=== PATIENT | female | born 1985 | race Caucasian/White ===

== ENCOUNTER 2022-11-04 14:43 | Emergency (ER) | payer OTHER, SELFPAY ==
[2022-11-04 14:44] VITALS: BP 115/69; PULSE 86; RESP 18; TEMP 36.4; O2SAT 99; BMI 47.4
--- NOTE | 2022-11-04 15:51 | ED.VIS.LOWEX ---
HPI History of Present Illness Chief Complaint: Lower Extremity Injury Narrative Narrative: 37-year-old female 9 weeks presenting with left calf pain. She has a known DVT and known pulmonary emboli that she was diagnosed with that about 4 weeks . She states has been treated with heparin shots 10,000 units every 8 hours. She reports that she still has pain in the left calf and her primary care doctor ordered a DVT study. This was done prior to coming to the ER and she was sent to the ER after this was found. She does not have any chest pain or shortness of breath. No bruising, swelling to the left calf. She reports pain is in the lower half of the mid calf. No trauma. PFSH PFSH Medical History no medical history Allergy/AdvReac Type Severity Reaction Status Date / Time No Known Allergies Allergy Verified 11/04/22 14:46 Social History Smoking Status: Never smoker ROS ROS ED Constitutional Constitutional ED: Denies chills, fever(s) or sweats Eyes Eyes: Denies blurry vision or change in vision ENT ENT ED: Denies ear pain or sore throat Cardiovascular Cardiovascular: Denies chest pain, palpitations or racing heartbeat Respiratory/Chest Respiratory/Chest: Denies cough, dyspnea or sputum Gastrointestinal Gastrointestinal: Denies abdominal pain, constipation, diarrhea, nausea or vomiting Genitourinary Genitourinary ED: Denies dysuria, hematuria or urinary frequency Musculoskeletal Musculoskeletal: Reports other Details: Left calf pain ; Denies arthralgias, myalgias or neck pain Integumentary Denies abscess, Abrasions or rash Neurologic Neurologic: Denies headache(s), paresthesias or weakness Psychiatric Psychiatric: Denies anxiety, depression, suicidal ideation or suicidal thoughts Endocrine Endocrinology: Denies polydipsia or polyuria EXAM Physical Exam Const Vital Signs: 11/04/22 14:44 Temperature 97.6 F L Temperature Source Temporal Pulse Rate 86 Respiratory Rate 18 Blood Pressure 115/69 Blood Pressure Mean 84 Pulse Ox 99 Oxygen Delivery Method Room Air Positive well nourished General Appearance ED: NAD HEENT Reports moist mucous membranes normocephalic and atraumatic Resp normal respiratory effort and no retractions Auscultation: Negative for rales, rhonchi or wheezes Cardio regular rate and regular rhythm Extremity normal to inspection Extremity Narrative: Tenderness to palpation left mid calf. No cords palpated. No redness, bruising, edema. General Extremety ED: Negative for edema General Extremity: Negative for edema Neuro oriented x3 Sensorium / Orientation: alert Motor Exam: strength 5/5 throughout Psych mental status grossly normal Skin no wounds MDM MDM MDM Narrative Medical decision making narrative: Patient presenting with known DVT to the left calf. Its been hurting her so Kody Hamilton ordered an outpatient DVT study which was positive for DVT because she was just diagnosed with this 5 weeks ago. Its at the level of the gastrocnemius. Patient reports he has no chest pain or shortness of breath. She is anticoagulated on heparin shots every 8 hours. At this point I do not know that she needs to change her medications. I feel that the heparin must be working or she would be having chest pain and shortness of breath. Likely this is just recurrent pain from DVT versus a new strain in the area. I spoke with Kody Hamilton who recommended just outpatient follow-up and using moist heat to this area. He recommended elevating her leg as well as often as she could. The patient and Dr. Hamilton state they do not want to switch her heparin because she is breast-feeding. They they will discuss this further at the neck office visit. Impression: 1. Left gastrocnemius DVT 2. History of PE Discharge Plan Triage Chief Complaint: Lower Extremity Injury ED Provider: Scott Mcmahan Dx/Rx/DC Orders Instructions: ED Deep Vein Thrombosis (DVT) Primary Care Provider: Kody Hamilton Referrals: Kody Hamilton DO [Primary Care Provider] - Disposition Disposition: Home, Self Care
== END 2022-11-04 15:58 | disposition home or self-care (01) ==
PROVIDERS: Emergency Provider Student in an Organized Health Care Education/Training Program; PCP Family Medicine; Visit Provider Student in an Organized Health Care Education/Training Program
DX: I82.462 Acute embolism and thrombosis of left calf muscular vein (principal); Z86.711 Personal history of pulmonary embolism
CPT/HCPCS: 99282

== ENCOUNTER → 2022-11-04 | Outpatient (CLI) | payer SELFPAY, OTHER ==
--- NOTE | 2022-11-04 13:43 | VDLE_ITS ---
Reason For Study: History of left leg DVT RIGHT LEFT CFV is compressible, spontaneous, phasic, GSV is normal. competent and demonstrates normal CFV is compressible, spontaneous, phasic, augmentation. competent, and demonstrates normal Procedure augmentation. This is a venous duplex using B-mode, color FV is compressible, spontaneous, phasic, flow and spectral Doppler. competent and demonstrates normal Exam performed in department. augmentation. The exam was diagnostic. POP V is compressible, spontaneous and A preliminary report was called and/or faxed phasic. to Dr. Hamilton. I was instructed to take T/P Trunk is compressible. patient to ED to have them seen by a PTV is compressible. physician. LT PerV is compressible. Acute deep vein thrombosis is noted in the gastrocnemius vein. It is dilated and NONCOMPRESSIBLE. VL/Venous Duplex US, Unilateral Interpretation Summary Deep venous thrombosis involving the left gastrocnemius vein. There is no evide nce of any proximal progression. Patent and compressible left great saphenous vein. Normal flow patterns right common femoral vein. Ordering Physician: Kody Hamilton Referring Physician: Kody Hamilton Performed By: Memo Ventura RVT
== END | disposition home or self-care (01) ==
PROVIDERS: PCP Family Medicine; Referring Provider Family Medicine; Visit Provider Family Medicine
DX: I82.462 Acute embolism and thrombosis of left calf muscular vein (principal)
CPT/HCPCS: 93971